=== PATIENT | female | born 1985 | race Hispanic/Latino ===

== ENCOUNTER 2023-01-12 12:01 | Emergency (ER) | payer SELFPAY ==
[2023-01-12] VITALS (9 sets, daily range): BP systolic 103–134; BP diastolic 62–104
[~2023-01-12] VITALS: Ht 170.2 cm; Wt 88.6 kg
[2023-01-12] MEDS ORDERED: NIFEDIPINE ER30 M1 PO (12:20)
[2023-01-12 12:42] LABS: BASO% 0.2 % (0-3); EOS% 2.5 % (0-8); HEMATOCRIT 37.8 % (37.0-47.0); HEMOGLOBIN 12.5 g/dl (12.0-16.0); IMMATURE GRANULOCYTES 0.2 % (0.0-5.0); LYMPH% 25.7 % (15-41); MEAN CELL VOLUME 87.1 fL CALC (80.0-100.0); MEAN CORPUSCULAR HGB 28.8 pG CALC (26.0-32.0); MEAN CORPUSCULAR HGB CONC 33.1 g/dL CAL (32.0-36.0); MONO% 8.9 % (2-13); NEUT# 5.81 thou/uL (2.00-7.15); NEUT% 62.5 % (42-76); RED BLOOD COUNT 4.34 mill/uL (4.20-5.60)
[2023-01-12 13:02] LABS: ALBUMIN 3.6 g/dL (3.2-5.0); ALKALINE PHOSPHATASE 50 u/l (38-126); ANION GAP 10 (6-22 (CALC)); BILIRUBIN, TOTAL 0.4 mg/dL (0.02-1.3); BUN 9 mg/dL (7-17); BUN/CREATININE RATIO 19 (12-20 (CALC)); CARBON DIOXIDE 21 mmol/l (22-30); CHLORIDE 107 mmol/l (95-108); CREATININE 0.5 mg/dL (0.5-1.0); GFR FOR AFR.AMER. > 60 ML/MIN (>=60 (CALC)); GFR OTHER RACES > 60 ML/MIN (>=60 (CALC)); LIPASE 61 u/l (23-300); POTASSIUM 3.3 mmol/l (3.5-5.1); SGOT/AST 27 u/l (14-36); SODIUM 135 mmol/l (137-146); TOTAL PROTEIN 6.8 g/dL (6.3-8.2)
[2023-01-12 13:36] LABS: URINE BILIRUBIN - DIPSTICK Negative (NEGATIVE); URINE BLOOD DIPSTICK Trace-intact (NEGATIVE); URINE GLUCOSE - DIPSTICK Negative (NEGATIVE); URINE KETONE Negative (NEGATIVE); URINE NITRITE - DIPSTICK Negative (Negative); URINE PROTEIN - DIPSTICK Negative (NEG-TRACE); URINE SPECIFIC GRAVITY 1.015; URINE UROBILINOGEN - DIPSTICK 0.2 E.U./dL (0.2)
[2023-01-12 13:41] LABS: URINE COLOR Yellow; URINE LEUK ESTERASE Small (NEGATIVE)
[2023-01-12 13:42] LABS: URINE BACTERIA FEW hpf; URINE WBC 0-2 WBC/hpf (0-5)
[2023-01-12 14:08] LABS: BETA-HCG, QUANT(RESULT NUMBER) 27297 mIU/mL
[2023-01-12] MEDS ORDERED: CEPHALEXIN500 M1 PO (14:27)
[2023-01-12] MEDS ORDERED: ZOFRAN4 MG/TAB PO (14:27)
== END 2023-01-12 15:08 | disposition home or self-care (01) | DRG 833 ==
LOC: ED 12:01
PROVIDERS: Family Medicine
DX: O99.282 Endocrine, nutritional and metabolic diseases complicating pregnancy, second trimester (principal); E86.0 Dehydration; Z3A.19 19 weeks gestation of pregnancy